=== PATIENT | male | born 1980 | race Hispanic/Latino ===

== ENCOUNTER 2019-01-17 16:53 | Inpatient (IN) | payer MEDICAID ==
--- NOTE | 2019-01-17 18:06 | C.PDOC ---
History Of Present Illness 38 year old male presents to ED for evaluation of worsening mood swings and headache for multiple months. Patient has a history of concussions as a young man. Patient has a gambling problem. Patient denies drinking and drug use, thou gh used a percocet. . He states that he feels forgetful. Patient states that he doesn't take his blood pressure medication for the last week. . Patient denies fever, chills, nausea, vomiting, dizziness, suicidal ideation, or homicidal ideation. <Eliza Dominguez - Last Filed: 01/17/19 19:14> History Per: Patient History/Exam Limitations: no limitations Onset/Duration Of Symptoms: Other (multiple months) Current Symptoms Are (Timing): Still Present Suicide/Self Injury Attempted (Context): None Modifying Factor(s): None Associated Symptoms: Other (mood swings). denies: Suicidal Thoughts, Suicidal Plan <Eliza Dominguez - Last Filed: 01/17/19 19:14> <Priya Nielsen - Last Filed: 01/17/19 20:47> Time Seen by Provider: 01/17/19 17:24 Chief Complaint (Nursing): Psychiatric Evaluation Past Medical History Reviewed: Historical Data, Nursing Documentation, Vital Signs Vital Signs: Last Vital Signs Temp 98.6 F 01/17/19 17:02 Pulse 92 H 01/17/19 17:02 Resp 18 01/17/19 17:02 BP 189/91 H 01/17/19 17:02 Pulse Ox 98 01/17/19 17:02 Primary Care Provider: Non [facility] Provider, - Medical History PMH: HTN Surgical History: No Surg Hx - [facility] Procedures INJECT/INFUSE NEC (05/26/04) Family History: States: Unknown Family Hx - Social History Hx Alcohol Use: No Hx Substance Use: No - Immunization History Hx Tetanus Toxoid Vaccination: No Hx Influenza Vaccination: No Hx Pneumococcal Vaccination: No <Eliza Dominguez - Last Filed: 01/17/19 19:14> Vital Signs: Last Vital Signs Temp 98.4 F 01/17/19 18:40 Pulse 77 01/17/19 18:40 Resp 18 01/17/19 18:40 BP 183/98 H 01/17/19 18:48 Pulse Ox 98 05/06/19 19:14 - [facility] Procedures INJECT/INFUSE NEC (05/26/04) <Diandra Nielsentiti - Last Filed: 01/17/19 20:47> Review Of Systems Constitutional: Negative for: Fever, Chills, Weakness Eyes: Negative for: Vision Change Gastrointestinal: Negative for: Nausea, Vomiting, Abdominal Pain Neurological: Positive for: Headache. Negative for: Weakness, Numbness, Dizziness Psych: Positive for: Other (mood swings). Negative for: Suicidal ideation <Eliza Dominguez - Last Filed: 01/17/19 19:14> Physical Exam - Physical Exam Appears: Well, Non-toxic, No Acute Distress, Other (spitting chewing tobacco into a bottle, large male) Skin: Normal Color, Warm, Dry Head: Atraumatic, Normacephalic Eye(s): bilateral: Normal Inspection, PERRL, EOMI Oral Mucosa: Moist Neck: Normal ROM, Supple Chest: Symmetrical, No Deformity Cardiovascular: Rhythm Regular, No Murmur Respiratory: No Accessory Muscle Use, No Rales, No Rhonchi, No Wheezing Gastrointestinal/Abdominal: Bowel Sounds (normoactive), Soft, No Tenderness Extremity: Capillary Refill (<2 seconds) Extremity: Bilateral: Atraumatic, Normal Color And Temperature, Normal ROM Pulses: Left Radial: Normal, Right Radial: Normal, Left Dorsalis Pedis: Normal, Right Dorsalis Pedis: Normal Neurological/Psych: Oriented x3, Normal Speech, Cerebellar Signs, Normal Motor, Normal Sensation, Normal Reflexes Gait: Steady <Eliza Dominguez - Last Filed: 01/17/19 19:14> ED Course And Treatment - Laboratory Results Result Diagrams: 01/17/19 18:13 01/17/19 18:13 O2 Sat by Pulse Oximetry: 98 (in RA) Pulse Ox Interpretation: Normal <Eliza Dominguez - Last Filed: 01/17/19 19:14> - Laboratory Results Result Diagrams: 01/17/19 18:13 01/17/19 18:13 Lab Results: Total Bilirubin 0.6 mg/dL (0.2-1.3) 01/17/19 18:13 AST 31 U/L (17-59) 01/17/19 18:13 ALT 22 U/L (21-72) 01/17/19 18:13 Alkaline Phosphatase 102 U/L (38-126) 01/17/19 18:13 Total Protein 7.8 g/dL (6.3-8.3) 01/17/19 18:13 Albumin 4.4 g/dL (3.5-5.0) 01/17/19 18:13 Globulin 3.4 gm/dL (2.2-3.9) 01/17/19 18:13 Albumin/Globulin Ratio 1.3 (1.0-2.1) 01/17/19 18:13 Urine Color Yellow (YELLOW) 01/17/19 18:13 Urine Clarity Hazy (Clear) 01/17/19 18:13 Urine pH 5.0 (5.0-8.0) 01/17/19 18:13 Ur Specific [place] 1.011 (1.003-1.030) 01/17/19 18:13 Urine Protein 1+ mg/dL (NEGATIVE) H 01/17/19 18:13 Urine Glucose (UA) Normal mg/dL (Normal) 01/17/19 18:13 Urine Ketones Negative mg/dL (NEGATIVE) 01/17/19 18:13 Urine Blood 1+ (NEGATIVE) H 01/17/19 18:13 Urine Nitrate Negative (NEGATIVE) 01/17/19 18:13 Urine Bilirubin Negative (NEGATIVE) 01/17/19 18:13 Urine Urobilinogen Normal mg/dL (0.2-1.0) 01/17/19 18:13 Ur Leukocyte Esterase Neg Juan/uL (Negative) 01/17/19 18:13 Urine WBC (Auto) < 1 /hpf (0-5) 01/17/19 18:13 Urine RBC (Auto) 4 /hpf (0-3) H 01/17/19 18:13 <Priya Nielsen - Last Filed: 01/17/19 20:47> Medical Decision Making Medical Decision Making: Impression: 38 year old male presents to ED for evaluation of worsening mood swings headache for multiple months. Initial Plan: EKG labs ordered with drug screen and UA CBC Lopressor PO Patient placed on 1:[address] await crisis eval and head ct results. pt made aware of elevated creatinine and need to f/u outpatient, s/o to Dr Nielsen <Eliza Dominguez - Last Filed: 01/17/19 19:14> Disposition - Disposition Disposition Time: 19:13 <Eliza Dominguez - Last Filed: 01/17/19 19:14> Discussed With DrStefan: Melvina High Comment: acceptd the pt onhis service and tookover the care at 8:46PM Doctor Will See Patient In The: Hospital Counseled Patient/Family Regarding: Studies Performed, Diagnosis - POA Present On Arrival: None <Priya Nielsen - Last Filed: 01/17/19 20:47> - Disposition Disposition: HOSPITALIZED Condition: FAIR Forms: [employer] [facility] ([place]) - Clinical Impression Clinical Impression: Major depressive disorder, recurrent, unspecified, Anxiety - PA / SODA MAKER / Resident Statement MD/DO has reviewed & agrees with the documentation as recorded. (Yasmine Gunderson) - Scribe Statement The provider has reviewed the documentation as recorded by the Scribe (Yasmine Marks) All medical record entries made by the Scribe were at my direction and personally dictated by me. I have reviewed the chart and agree that the record accurately reflects my personal performance of the history, physical exam, medical decision making, and the department course for this patient. I have also personally directed, reviewed, and agree with the discharge instructions and disposition. <Eliza Dominguez - Last Filed: 01/17/19 19:14> Physician Patient Turnover Patient Signed Over To: Priya Nielsen Handoff Comments: f/u head ct, recheck bp and f/u crisis consult <Eliza Dominguez - Last Filed: 01/17/19 19:14> Decision To Admit <Eliza Dominguez - Last Filed: 01/17/19 19:14> - Pt Status Changed To: Hospital Disposition Of: Inpatient - Admit Certification Admit to Inpatient:: After my assessment, the patient will require hospitalization for at least two midnights. This is because of the severity of symptoms shown, intensity of services needed, and/or the medical risk in this patient being treated as an outpatient. - InPatient: Physician Admission Certification: I certify that this patient requires 2 or more midnights of care for the following reason:: After my assessment, the patient will require hospitalization for at least two midnights. This is because of the severity of symptoms shown, intensity of services needed, and/or the medical risk in this patient being treated as an outpatient. - . Bed Request Type: Psychiatry Admitting Physician: Melvina High <Priya Nielsen - Last Filed: 01/17/19 20:47> - . Patient Diagnosis: Major depressive disorder, recurrent, unspecified, Anxiety
[2019-01-17 18:18] LABS: BASO % 0.4 % (0.0-2.0); EOS # 0.4 K/uL (0.0-0.7); EOS % 4.3 % (0.0-4.0); HEMOGLOBIN 14.1 g/dL (12.0-18.0); LYMPH # 2.4 K/uL (1.0-4.3); MEAN CELL VOLUME 85.9 fL (80.0-94.0); MEAN CORPUSCULAR HEMOGLOBIN 30.2 pg (27.0-31.0); MEAN CORPUSCULAR HGB CONC 35.2 g/dL (33.0-37.0); MEAN PLATELET VOLUME 7.6 fL (7.2-11.7); MONO # 0.6 K/uL (0.0-0.8); MONO % 6.2 % (0.0-10.0); NEUT # 6.5 K/uL (1.8-7.0); NEUT % 65.1 % (50.0-75.0); RBC 4.66 Mil/uL (4.40-5.90); RED CELL DISTRIBUTION WIDTH 13.9 % (11.5-14.5)
[2019-01-17 18:19] LABS: URINE BILIRUBIN NEGATIVE (NEGATIVE); URINE BLOOD 1+ (NEGATIVE); URINE CLARITY Hazy (Clear); URINE COLOR Yellow (YELLOW); URINE GLUCOSE (UA) NORMAL (Normal); URINE LEUKOCYTE ESTERASE NEG Leu/uL (Negative); URINE PROTEIN 1+ mg/dL (NEGATIVE); URINE UROBILINOGEN NORMAL mg/dL (0.2-1.0)
[2019-01-17 18:34] LABS: ALB/GLOB RATIO 1.3 (1.0-2.1); ALBUMIN 4.4 g/dL (3.5-5.0); ALT/SGPT 22 U/L (21-72); AST/SGOT 31 U/L (17-59); BLOOD UREA NITROGEN 20 mg/dL (9-20); CALCIUM 9.6 mg/dl (8.6-10.4); GFR NON-AFRICAN AMERICAN 40
[2019-01-17 18:43] LABS: BARBITURATES, UR NEGATIVE (NEGATIVE); PHENCYCLIDINE, UR NEGATIVE (NEGATIVE)
[2019-01-17 18:46] LABS: BENZODIAZEPINES, UR POSITIVE (NEGATIVE); OPIATES, UR POSITIVE (NEGATIVE)
[2019-01-17 19:13] VITALS: O2SAT 98
--- NOTE | 2019-01-17 21:04 | PCM.BM ---
<Alvin Marx - Last Filed: 01/17/19 21:03> Treatment Plan Problems - Problems identified on initial assessmt agitated agressive behavior Date Initiated: 01/17/19 Time Initiated: 21:04 Assessment reference: NA Status: Active High Risk Violence Date Initiated: 01/17/19 Time Initiated: 21:04 Assessment reference: NA Status: Active Ineffective Impulsive Control Date Initiated: 01/17/19 Time Initiated: 21:04 Assessment reference: NA Status: Active Treatment assets and liabiliti Patient Assests: cooperative, motivated, negotiates basic needs Patient Liabilities: financial problems - Milieu Protocol Maintain good personal hygiene: daily Encourage regular showers, daily Remind pa tient to perform daily oral care, daily Assist patient to perform ADL's Conduct patient checks and document Observation sheet: Q15 minutes Maintain personal safety: every shift Educate patient to report safety concerns to staff, every shift Monitor environment for contraband/sharps Medication safety: Monitor for expected outcome, potential side effects: every shift, Assess barriers to learning: every shift, Assess readiness for medication education: every shift <Renee Dos Santos - Last Filed: 01/19/19 10:45> - Diagnosis (1) Bipolar disorder, current episode mixed, severe, without psychotic features Status: Acute Interventions: 01/19/19 10:45 * Assess/adjust medications daily and /or as needed * See patient on an individual basis 7x/week to assess level of manic behaviors and stability * Discuss risks, benefits, side effects and alternatives of medications * (2) Opioid use disorder, severe, dependence Status: Acute Interventions: 01/19/19 10:46 * Assess 7x/week regarding severity of withdrawal * Educate regarding risks, benefits, side effects and alternatives of medications * Use Motivational Interviewing for abstinence * Use CBT for relapse prevention * Medication management for withdrawal symptoms * Encourage medication assisted treatment * <Shanelle Whittington - Last Filed: 01/19/19 12:03> Family Contact Family involvement: Patient does not wish Family/SO involvement Family contact: Patient declines to allow family contact at present - Goals for Treatment Patient goals for treatment: Patient signed out [employer] Medical Advice(AMA). Discharge/Continuing Care - Education Needs Education Needs: Patient Medication, Patient Diagnosis/Disease Process, Patient Coping Skills, Patient Anger Management skills, Patient Placement options, Patient Community resources - Discharge Discharge Criteria: Free of Suicidal thoughts, Free of agitation, Normal sleep pattern, Ability to care for self, No longer exhibiting s/s of withdrawal, Reduction of target symptoms Discharge to:: Home - Treatment Team Participation Discussed with Family/SO: No Was Patient/Family/SO present at Treatment Team Meeting: Yes
--- NOTE | 2019-01-18 06:51 | CT ---
Date of service: 01/17/2019 PROCEDURE: CT HEAD WITHOUT CONTRAST. HISTORY: headache. mood swings. History of concussions COMPARISON: None available. TECHNIQUE: Axial computed tomography images were obtained through the head/brain without intravenous contrast. Radiation dose: Total exam DLP = 1138.4 mGy-cm. This CT exam was performed using one or more of the following dose reduction techniques: Automated exposure control, adjustment of the mA and/or kV according to patient size, and/or use of iterative reconstruction technique. FINDINGS: HEMORRHAGE: No intracranial hemorrhage. BRAIN: No mass effect or edema. No atrophy or chronic microvascular ischemic changes. VENTRICLES: Unremarkable. No hydrocephalus. CALVARIUM: Unremarkable. PARANASAL SINUSES: Mild mucosal thickening of the bilateral maxillary sinuses. 9 millimeter mucosal retention cyst and or polyp at the anterior wall of the right maxillary sinus. Mild mucosal thickening of the sphenoid sinus and ethmoid air cells. MASTOID AIR CELLS: Unremarkable as visualized. No inflammatory changes. OTHER FINDINGS: None. IMPRESSION: No acute intracranial abnormality. Sinus mucosal disease. If symptoms persists, consider correlation with MRI. A preliminary report was generated at 8:28 p.m. on 01/17/[address] Evens Boone from [employer].
--- NOTE | 2019-01-18 10:08 | PCM.PSYCH ---
Initial Psychiatric Evaluation - Initial Psychiatric Evaluation Type of Admission: Voluntary Legal Status: Capacity Chief Complaint (in patient's own words): I was not feeling good. History of Present Illness and Precipitating Events: The patient is a 38 year old male who presents to the ER for depressed and irritable mood and SI . Patient denies any past history of any inpatient psychiatric hospitalization. He also denies any history of follow-up with any psychiatrist. However he [facility] him for anger management. The patient denies any previous suicidal attempt, but had SI with a plan 3 months ago to jump into the [facility]. The patient attributes the SI to gambling and finanical problems, and being unemployed. He remained a poor historian. He remains very irritable and very agitated throughout the interview. Patient reports that he has had multiple knee surgeries and was prescibed Percocet which the patient reports continued use. He also reports of taking Xanax off and on. He reports irritability, agitation, racing thoughts and flight of ideas. He reports that at times he becomes very angry and irritable and he starts yelling and cursing. Yesterday he became increasingly irritable and depressed and/or suicidal ideation so he came to the hospital to get help. He reports that he has a history of 'post concussion syndrome' and the patient reports causing problems with his memory and having moments of "fogginess". However he denies any auditory hallucinations and paranoia. He denies any drinking or any cocaine or heroin use. Past medical history Hypertension Current Medications: Active Medications Generic Name Dose Route Start Last Admin Trade Name Freq PRN Reason Stop Dose Admin Hydroxyzine HCl 50 mg 01/17/19 23:39 01/17/19 23:47 Atarax PO 50 mg Q6 PRN Administration Anxiety Trazodone HCl 100 mg 01/17/19 23:45 01/17/19 23:47 Desyrel PO 100 mg HS LEONARD Administration Past Psychiatric History - Past Psychiatric History Previous Treatment History: None Pertinent Medical Hx (Current Medical&Sleep Prob, Allergies): Allergies Allergy/AdvReac Type Severity Reaction Status Date / Time shellfish derived Allergy Severe ANAPHYLAXIS Verified 01/17/19 17:07 oxyCODONE/Acetaminophen [Percocet 5/325 mg Tab] 1 tab PO TID PRN #5 tab 12/10/15 Metoprolol 01/17/19 Review of Systems - Review of Systems All systems: reviewed and no additional remarkable complaints except - Psychiatric Psychiatric: Anxiety, Irritability, Suicidal Ideation Mental Status Examination - Personal Presentation Personal Presentation: Looks stated age - Affect Affect: Broad, Depressed - Motor Activity Motor Activity: Psychomotor Agitation - Reliability in Providing Information Reliability in Providing Information: Poor, due to altered mood - Speech Speech: Organized - Mood Mood: Depressed, Anxious - Formal Thought Process Formal Thought Process: No Impairment - Obsessions/Compulsions Obsessions: No Compulsions: No - Cognitive Functions Orientation: Person, Place, Situation, Time Sensorium: Alert Attention/Concentration: Attentive Abstract Thinking: [place] Estimate of Intelligence: Below average Judgement: Imparied, as evidence by: Poor judgement, Imparied, as evidence by: Lack of insight into illness - Risk Risk: Suicidal, Diminished functioning - Strength & Assets Inventory Strength & Assets Inventory: Family support DSM 5 DX - DSM 5 DSM 5 Diagnosis: Bipolar disorder depressed severe without psychotic features Opioid use disorder moderate Sedative/hypnotic use disorder moderate - Recommended/Plan of Treatment Treatment Recommendations and Plan of Treatment: Bipolar disorder depressed severe without psychotic features Opioid use disorder moderate Sedative/hypnotic use disorder moderate CBT Supportive therapy Psychoeducation Trazodone for insomnia Hydroxyzine for anxiety Neurontin for augmentation Depakote for mood
[2019-01-18] MEDS: Divalproex 250 mg DR Tab PO SCH ×2 (11:29→17:19)
[2019-01-18 11:33] VITALS: RESP 18
[2019-01-19 08:33] VITALS: BP 149/99; PULSE 97; TEMP 98.4
[2019-01-19] MEDS: Divalproex 250 mg DR Tab PO SCH (09:00)
[2019-01-19] MEDS ORDERED: Metoprolol Succinate 50 mg XL Tab PO SCH (10:00)
--- NOTE | 2019-01-19 10:45 | PCM.PYCHPN ---
Psychiatric Progress Note - Psychiatric Progress Note Patient seen today, length of contact: 15 min Medication Change: Yes Medical Record Reviewed: Yes Mental Status Examination - Cognitive Function Orientation: Person, Place, Situation, Time Memory: Intact Attention: WNL Concentration: Poor Association: WNL Fund of Knowledge: Poor - Mood Mood: Depressed, Anxious - Affect Affect: Constricted, Depressed - Speech Speech: Soft - Formal Thought Process Formal Thought Process: No Impairment - Suicidal Ideation Suicidal Ideation: No - Homicidal Ideation Homicidal Ideation: No Goal/Treatment Plan - Goal/Treatment Plan Need for Continued Stay: Remain at risks for inpatient hospitalization Progress Toward Problem(s) and Goals/Treatment Plan: Bipolar disorder depressed severe without psychotic features Opioid use disorder severe Opioid withdrawal Sedative/hypnotic use disorder severe CBT Supportive therapy Psychoeducation Methadone 90 mg daily Trazodone for insomnia Hydroxyzine for anxiety Neurontin for augmentation [place] for mood
--- NOTE | 2019-01-19 11:19 | PCM.PYCHDC ---
Mental Status Examination - Mental Status Examination Orientation: Person, Place, Situation, Time Memory: Intact Mood: Anxious Affect: Broad Speech: Pressured Attention: WNL Concentration: WNL Association: WNL Fund of Knowledge: WNL Formal Thought Process: No Impairment Description of patient's judgement and insight: partially impaired Psychotic Thoughts and Behaviors: denies any AVH Suicidal Ideation: No Current Homicidal Ideation?: No Discharge Summary - Discharge Note Reason for Hospitalization: The patient is a 38 year old male who presents to the ER for depressed and irritable mood and SI . Patient denies any past history of any inpatient psychiatric hospitalization. He also denies any history of follow-up with any psychiatrist. However he reports that he went to the [facility] and his therapist sent him for anger management. The patient denies any previous suicidal attempt, but had SI with a plan 3 months ago to jump into the [facility]. The patient attributes the SI to gambling and finanical problems, and being unemployed. He remained a poor historian. He remains very irritable and very agitated throughout the interview. Patient reports that he has had multiple knee surgeries and was prescibed Percocet which the patient reports continued use. He also reports of taking Xanax off and on. He reports irritability, agitation, racing thoughts and flight of ideas. He reports that at times he becomes very angry and irritable and he starts yelling and cursing. Yesterday he became increasingly irritable and depressed and/or suicidal ideation so he came to the hospital to get help. He reports that he has a history of 'post concussion syndrome' and the patient reports causing problems with his memory and having moments of "fogginess". However he denies any auditory hallucinations and paranoia. He denies any drinking or any cocaine or heroin use. Consultations:: List each consultation separately and include: 1. Reason for request. 2. Findings. 3. Follow-up Summary of Hospital Course include:: 1. Description of specific treatment plan utilized for patients during their course of treatmen. 2. Summarize the time- course for resolution of acute symptoms and/or regressed behaviors. 3. Describe issues identified and worked on during hospitalization. 4. Describe medication utilized. 5. Describe medical problems identified and treated. 6. Reassessment of suicide risk Summary of Hospital Course: The patient is a 38 year old male who presents to the ER for SI with no plan, depression, and anxiety. The patient reports SI with no plan and constant mood swings. The patient denies any previous attempt, but had SI with a plan 3 months ago to jump into the [facility]. The patient attributes the SI to gambling and finanical problems, stress, anxiety, and being unemployed. The patient denies any previous psychiatric hospitalizions, but sought assistance at [facility]. The patient completed the intake appointment on 12/05/18 a nd is awaiting a follow up appointment with the psychiatrist, therapist, and referral for anger managment. The patient is currently on the waiting list and will receive a call when a slot becomes available. The patient was diagnosed with PTSD, Anxiety, and Depression. The patient denies being prescibed any medication at this time. The patient is taking his mother's Xanax, but could not recall the dosage. The patient's last use of Xanax was 1 week ago. The patient has had multiple knee surgeries and was prescibed Percocet which the patient reports continued use. The patient's Rx is , but the patinet has several pills remaining. The patient is also taking a muscle relaxer and Zanaflex. The patient was last seen by his orthopedic physician last year and no follow up appointment was required. The patient has high blood pressure and is prescibed Metroplol, but the patient is not taking as prescibed. The patient last took his high blood pressure medication 1 week ago. The patient was last seen by his PMD, Dr. Infante, November 2018. The patient suffered muliple concussions in [id number] and reports being diagnosed with post concussion syndrome which the patient reports causing problems with his memory and having moments of "fogginess". The patient was oriented X4, cooperative, appeared to be unkempt, slurred and mumbled speech. The patient's judgement and insight was fair. The patient's mood was anxious, thought process was WNL. [ End ] - Diagnosis (1) Bipolar disorder, current episode mixed, severe, without psychotic features Status: Acute (2) Opioid use disorder, severe, dependence Status: Acute - Final Diagnosis (DSM 5) Condition upon Discharge: FAIR DSM 5: Bipolar disorder depressed severe without psychotic features Opioid use disorder moderate Sedative/hypnotic use disorder moderate Disposition: HOME/ ROUTINE Follow-up Treatment Plan: Bipolar disorder depressed severe without psychotic features Opioid use disorder severe Sedative/hypnotic use disorder severe CBT Supportive therapy Psychoeducation Methadone 90 mg daily Trazodone for insomnia Hydroxyzine for anxiety Neurontin for augmentation [place] for mood
--- NOTE | 2019-01-20 03:26 | CARD ---
APPROVED REPORT Date of service: 01/17/2019 EKG Measurement Heart [id number] <Conclusion> Normal sinus rhythm Minimal voltage criteria for LVH, may be normal variant Borderline ECG
== END 2019-01-19 12:00 | disposition left against medical advice (07) | DRG 430 ==
LOC: C.ER 16:53 → C.5E 20:45
PROVIDERS: ADMIT Psychiatry & Neurology Psychiatry; ATTEND Psychiatry & Neurology Psychiatry
PROC: GZHZZZZ Group Psychotherapy (ICD-10-PCS; principal; 2019-01-17)
PROC: HZ2ZZZZ Detoxification Services for Substance Abuse Treatment (ICD-10-PCS; 2019-01-17)
PROC: HZ52ZZZ Individual Psychotherapy for Substance Abuse Treatment, Cognitive-Behavioral (ICD-10-PCS; 2019-01-17)
PROC: HZ59ZZZ Individual Psychotherapy for Substance Abuse Treatment, Supportive (ICD-10-PCS; 2019-01-17)
PROC: HZ56ZZZ Individual Psychotherapy for Substance Abuse Treatment, Psychoeducation (ICD-10-PCS; 2019-01-17)
PROC: HZ42ZZZ Group Counseling for Substance Abuse Treatment, Cognitive-Behavioral (ICD-10-PCS; 2019-01-17)
PROC: HZ46ZZZ Group Counseling for Substance Abuse Treatment, Psychoeducation (ICD-10-PCS; 2019-01-17)
PROC: GZ58ZZZ Individual Psychotherapy, Cognitive-Behavioral (ICD-10-PCS; 2019-01-17)
PROC: GZ56ZZZ Individual Psychotherapy, Supportive (ICD-10-PCS; 2019-01-17)
DX: F31.63 Bipolar disorder, current episode mixed, severe, without psychotic features (principal); F11.23 Opioid dependence with withdrawal; F13.20 Sedative, hypnotic or anxiolytic dependence, uncomplicated; I10 Essential (primary) hypertension; F43.10 Post-traumatic stress disorder, unspecified; Z72.6 Gambling and betting; Z87.820 Personal history of traumatic brain injury; R45.851 Suicidal ideations; F41.9 Anxiety disorder, unspecified; Z56.0 Unemployment, unspecified; F07.81 Postconcussional syndrome; G47.00 Insomnia, unspecified